=== PATIENT | male | born 1950 | race Caucasian/White ===

== ENCOUNTER 2022-05-19 20:59 | Inpatient (IN) | payer MEDICARE, OTHER ==
[~2022-05-19] VITALS: Ht 162.6 cm; Wt 72.6 kg
[2022-05-19] MEDS: levoFLOXacin 500 MG/D5W 500 MG in PREMIXED 1 EACH IV SCH (02:55)
[2022-05-19] MEDS ORDERED: ALBUTEROL SULFATE 2.5 MG/3 ML NEBU ONE (21:11)
[2022-05-19] MEDS ORDERED: IPRATROPIUM BROMIDE 0.5 MG/2.5 ML NEBU ONE (21:11)
[2022-05-19] MEDS ORDERED: IPRATROPIUM BROMIDE 0.5 MG/2.5 ML NEBU NEB ONE (21:15)
[2022-05-19] MEDS ORDERED: MAGNESIUM SULFATE 2 GM in IV DEXTROSE 5% 100 ML IV ONE (21:15)
[2022-05-19] MEDS ORDERED: ALBUTEROL SULFATE 2.5 MG/3 ML NEBU NEB ONE (21:15)
[2022-05-19] MEDS ORDERED: methylPREDNISolone SOD SUCC 125 MG/2 ML VIAL IV ONE (21:15)
[2022-05-19] MEDS ORDERED: methylPREDNISolone SOD SUCC 125 MG/2 ML VIAL ONE (21:26)
[2022-05-19] MEDS ORDERED: MAGNESIUM SULFATE/D5W 200 ML ONE (21:26)
[2022-05-19 21:44] LABS: HEMATOCRIT 44.3 % (36.7-47.1); MEAN CORPUSCULAR VOLUME 91.2 fL (73.0-96.2); PLATELET COUNT (AUTO) 216 K/uL (152-348)
[2022-05-19] MEDS ORDERED: CEFTRIAXONE 1 G in IV DEXTROSE 5% 50 ML IV ONE (22:00)
[2022-05-19] MEDS ORDERED: DOXYCYCLINE HYCLATE IV 100 MG in IV DEXTROSE 5% 100 ML IV ONE (22:00)
[2022-05-19 22:02] LABS: POTASSIUM 3.7 mmol/L (3.5-5.1)
[2022-05-19 22:07] LABS: BILIRUBIN,TOTAL 0.6 mg/dL (0.2-1.0); MAGNESIUM 2.2 mg/dL (1.8-2.4); PHOSPHOROUS 3.5 mg/dL (2.5-4.9); TOTAL PROTEIN, SERUM 7.3 g/dL (6.4-8.2)
[2022-05-19 22:12] LABS: EOSINOPHILS % (MANUAL) 28 % (0-8); LYMPHOCYTES % (MANUAL) 34 % (20-40); METAMYELOCYTES % 1 % (0-1); MONOCYTES % (MANUAL) 7 % (2-10); MYELOCYTES % 1 % (0-0); NEUTROPHILS % (MANUAL) 26 % (42-75)
[2022-05-19] MEDS ORDERED: OMEP20CA16 PO (22:15)
[2022-05-19] MEDS ORDERED: ATOR20TA PO (22:15)
[2022-05-19] MEDS ORDERED: OMEP20TA20 PO (22:15)
[2022-05-19] MEDS ORDERED: TAMS-3 PO (22:16)
[2022-05-19] MEDS ORDERED: LEVO5TAB13 PO (22:16)
[2022-05-19] MEDS ORDERED: CEFTRIAXONE /D5W 50ML IVPB **ER PYXIS IV ONE (22:20)
[2022-05-19 22:58] LABS: ABG BASE EXCESS 1.8 mmol/L; ABG HCO3 25.2 mmol/L; ABG PCO2 36.1 mmHg (35.0-45.0); ABG PH 7.462 (7.350-7.450); ABG PO2 59.6 mmHg (75.0-100.0); ABG SITE RIGHT RADIAL; ABG TOTAL HEMOGLOBIN 15.8 G/dL (13.5-18.0); COHb 0.9 % (0.5-1.5); MetHb 0.3 % (0.0-1.5); O2Hb 90.1 % (94.0-97.0); VENT MODE Nasal Cannula
[2022-05-19] MEDS ORDERED: DOXYCYCLINE HYCLATE 100 MG TABLET ONE (23:25)
[2022-05-19] MEDS ORDERED: ONDANSETRON 4 MG/2 ML VIAL IV PRN (23:30)
[2022-05-19] MEDS ORDERED: ALBUTEROL SULFATE 2.5 MG/ 0.5 ML NEBU NEB PRN (23:30)
[2022-05-19] MEDS ORDERED: HYDROCODONE/APAP 5-325MG TABLET PO PRN (23:30)
[2022-05-19] MEDS ORDERED: DOXYCYCLINE HYCLATE 100 MG TABLET PO ONE (23:30)
[2022-05-19] MEDS ORDERED: ACETAMINOPHEN 325 MG TABLET PO PRN (23:30)
[2022-05-19] MEDS ORDERED: MAGNESIUM HYDROXIDE 30 ML LIQUID UDC PO PRN (23:30)
[2022-05-20] MEDS ORDERED: levoFLOXacin 500 MG/D5W 100 ML ONE (02:46)
[2022-05-20] MEDS: levoFLOXacin 500 MG/D5W 500 MG in PREMIXED 1 EACH IV SCH ×2 (02:53→22:20)
[2022-05-20] MEDS: IPRATROPIUM BROMIDE 0.5 MG/2.5 ML NEBU NEB PRN ×3 (04:21→16:11)
[2022-05-20] MEDS ORDERED: IPRATROPIUM BROMIDE 0.5 MG/2.5 ML NEBU ONE (04:23)
[2022-05-20] MEDS ORDERED: ALBUTEROL SULFATE 2.5 MG/3 ML NEBU ONE (04:23)
[2022-05-20] MEDS ORDERED: methylPREDNISolone SOD SUCC 40 MG/ML VIAL ONE (06:02)
[2022-05-20] MEDS: methylPREDNISolone SOD SUCC 40 MG/ML VIAL IV SCH ×3 (06:05→21:14)
[2022-05-20] MEDS ORDERED: PANTOPRAZOLE SODIUM 40 MG TABLET.DR PO ONE (07:26)
[2022-05-20] MEDS: PANTOPRAZOLE SODIUM 40 MG TABLET.DR PO SCH (07:40)
[2022-05-20 07:48] LABS: THYROID STIMULATING HORMONE 0.706 mIU/mL (0.358-3.740)
[2022-05-20 07:51] LABS: BILIRUBIN,TOTAL 0.5 mg/dL (0.2-1.0); MAGNESIUM 2.6 mg/dL (1.8-2.4); PHOSPHOROUS 4.2 mg/dL (2.5-4.9); POTASSIUM 4.3 mmol/L (3.5-5.1); TOTAL PROTEIN, SERUM 7.3 g/dL (6.4-8.2)
[2022-05-20 07:55] LABS: HEMATOCRIT 41.9 % (36.7-47.1); MEAN CORPUSCULAR HEMOGLOBIN 30.1 uug (23.8-33.4); MEAN CORPUSCULAR VOLUME 91.2 fL (73.0-96.2); PLATELET COUNT (AUTO) 180 K/uL (152-348)
[2022-05-20] MEDS ORDERED: FLUTICASONE/VILANTEROL 1 EACH BLST.W.DEV INH SCH (09:00)
[2022-05-20] MEDS ORDERED: LEVOCETIRIZINE DIHYDROCHLORIDE 5 MG PO SCH (09:00)
[2022-05-20 10:04] VITALS: BP 146/70
[2022-05-20] MEDS: ENOXAPARIN SODIUM 40 MG/0.4 ML DISP.SYRIN SQ SCH (10:39)
[2022-05-20] MEDS: LORATADINE 10 MG TABLET PO SCH (10:40)
[2022-05-20] MEDS: ALBUTEROL SULFATE 2.5 MG/ 0.5 ML NEBU NEB PRN ×2 (10:54→16:11)
[2022-05-20 12:00] VITALS: BP 133/71
[2022-05-20 15:50] VITALS: BP 145/67
[2022-05-20] MEDS: ALBUTEROL SULFATE 2.5 MG/3 ML NEBU NEB SCH ×2 (16:12→20:17)
[2022-05-20] MEDS: IPRATROPIUM BROMIDE 0.5 MG/2.5 ML NEBU NEB SCH ×2 (16:12→20:16)
[2022-05-20] MEDS ORDERED: methylPREDNISolone SOD SUCC 125 MG/2 ML VIAL IV ONE (16:45)
[2022-05-20 20:00] VITALS: BP 123/66
[2022-05-20 20:15] LABS: LYMPHOCYTES % (MANUAL) 12 % (20-40); MONOCYTES % (MANUAL) 2 % (2-10); NEUTROPHILS % (MANUAL) 86 % (42-75)
[2022-05-20] MEDS: TAMSULOSIN HCL 0.4 MG CAP.SR.24H PO SCH (20:50)
[2022-05-20] MEDS: ATORVASTATIN 20 MG TABLET PO SCH (20:50)
[2022-05-20] MEDS: DOCUSATE SODIUM 100 MG CAPSULE PO SCH (20:50)
[2022-05-20] MEDS ORDERED: DOCUSATE SODIUM 250 MG CAPSULE PO SCH (21:00)
[2022-05-21] VITALS: BP 124/61
[2022-05-21] MEDS: IPRATROPIUM BROMIDE 0.5 MG/2.5 ML NEBU NEB SCH ×8 (00:05→23:36)
[2022-05-21] MEDS: ALBUTEROL SULFATE 2.5 MG/3 ML NEBU NEB SCH ×8 (00:06→23:36)
[2022-05-21 04:00] VITALS: BP 114/56
[2022-05-21] MEDS: methylPREDNISolone SOD SUCC 40 MG/ML VIAL IV SCH ×3 (05:20→21:41)
[2022-05-21] MEDS: PANTOPRAZOLE SODIUM 40 MG TABLET.DR PO SCH (06:51)
[2022-05-21 07:19] LABS: HEMATOCRIT 39.7 % (36.7-47.1); MEAN CORPUSCULAR HEMOGLOBIN 30.4 uug (23.8-33.4); MEAN CORPUSCULAR VOLUME 91.3 fL (73.0-96.2); PLATELET COUNT (AUTO) 189 K/uL (152-348)
[2022-05-21 07:27] LABS: CREATININE 1.2 mg/dL (0.6-1.3); MAGNESIUM 2.7 mg/dL (1.8-2.4); POTASSIUM 4.2 mmol/L (3.5-5.1)
[2022-05-21 07:32] LABS: THYROID STIMULATING HORMONE 0.638 mIU/mL (0.358-3.740)
[2022-05-21 08:53] LABS: *RHEUMATOID FACTOR SCREEN NEGATIVE (NEGATIVE)
[2022-05-21] MEDS: LORATADINE 10 MG TABLET PO SCH (09:41)
[2022-05-21] MEDS: GUAIFENESIN/DEXTROMETHORPHAN 5 ML UDC PO PRN (09:46)
[2022-05-21] MEDS: ENOXAPARIN SODIUM 40 MG/0.4 ML DISP.SYRIN SQ SCH (09:57)
[2022-05-21 20:30] VITALS: BP 132/69
[2022-05-21] MEDS: DOCUSATE SODIUM 100 MG CAPSULE PO SCH (20:32)
[2022-05-21] MEDS: ATORVASTATIN 20 MG TABLET PO SCH (20:32)
[2022-05-21] MEDS: TAMSULOSIN HCL 0.4 MG CAP.SR.24H PO SCH (20:32)
[2022-05-21] MEDS: levoFLOXacin 500 MG/D5W 500 MG in PREMIXED 1 EACH IV SCH (23:05)
[2022-05-22 00:08] VITALS: BP 131/59
[2022-05-22 04:20] VITALS: BP 125/69
[2022-05-22] MEDS: IPRATROPIUM BROMIDE 0.5 MG/2.5 ML NEBU NEB SCH ×5 (04:35→20:42)
[2022-05-22] MEDS: ALBUTEROL SULFATE 2.5 MG/3 ML NEBU NEB SCH ×5 (04:35→20:43)
[2022-05-22] MEDS: methylPREDNISolone SOD SUCC 40 MG/ML VIAL IV SCH ×3 (05:54→22:03)
[2022-05-22 06:21] LABS: HEMATOCRIT 38.6 % (36.7-47.1); MEAN CORPUSCULAR HEMOGLOBIN 30.3 uug (23.8-33.4); MEAN CORPUSCULAR VOLUME 91.1 fL (73.0-96.2); PLATELET COUNT (AUTO) 194 K/uL (152-348)
[2022-05-22] MEDS: PANTOPRAZOLE SODIUM 40 MG TABLET.DR PO SCH (06:31)
[2022-05-22 06:37] LABS: CREATININE 1.2 mg/dL (0.6-1.3); MAGNESIUM 2.6 mg/dL (1.8-2.4); PHOSPHOROUS 4.5 mg/dL (2.5-4.9); POTASSIUM 4.3 mmol/L (3.5-5.1)
[2022-05-22] MEDS: ENOXAPARIN SODIUM 40 MG/0.4 ML DISP.SYRIN SQ SCH ×2 (08:05→09:55)
[2022-05-22] MEDS: LORATADINE 10 MG TABLET PO SCH (08:46)
[2022-05-22 12:06] LABS: *IMMUNOGLOBULIN G, SERUM 810 mg/dL (603-1613); IMMUNOGLOBULIN M, SERUM 88 mg/dL (15-143)
[2022-05-22] MEDS: GUAIFENESIN/DEXTROMETHORPHAN 5 ML UDC PO PRN (14:14)
[2022-05-22 15:27] VITALS: BP 139/63
[2022-05-22 20:30] VITALS: BP 140/54
[2022-05-22] MEDS: ATORVASTATIN 20 MG TABLET PO SCH (20:47)
[2022-05-22] MEDS: TAMSULOSIN HCL 0.4 MG CAP.SR.24H PO SCH (20:47)
[2022-05-22] MEDS: DOCUSATE SODIUM 100 MG CAPSULE PO SCH (20:47)
[2022-05-22] MEDS: levoFLOXacin 500 MG/D5W 500 MG in PREMIXED 1 EACH IV SCH (22:32)
[2022-05-23 00:15] VITALS: BP 120/49
[2022-05-23] MEDS: IPRATROPIUM BROMIDE 0.5 MG/2.5 ML NEBU NEB SCH ×7 (00:27→23:43)
[2022-05-23] MEDS: ALBUTEROL SULFATE 2.5 MG/3 ML NEBU NEB SCH ×6 (00:27→19:39)
[2022-05-23 04:00] VITALS: BP 110/54
[2022-05-23] MEDS: methylPREDNISolone SOD SUCC 40 MG/ML VIAL IV SCH ×3 (05:45→21:01)
[2022-05-23] MEDS: PANTOPRAZOLE SODIUM 40 MG TABLET.DR PO SCH (06:11)
[2022-05-23 06:57] LABS: HEMATOCRIT 38.2 % (36.7-47.1); MEAN CORPUSCULAR HEMOGLOBIN 30.5 uug (23.8-33.4); MEAN CORPUSCULAR VOLUME 91.3 fL (73.0-96.2); PLATELET COUNT (AUTO) 164 K/uL (152-348)
[2022-05-23 07:18] LABS: MAGNESIUM 2.5 mg/dL (1.8-2.4); PHOSPHOROUS 4.2 mg/dL (2.5-4.9); POTASSIUM 4.4 mmol/L (3.5-5.1)
[2022-05-23] MEDS ORDERED: SWABABLE VALVE TRANSFER SET EA MC ONE (08:21)
[2022-05-23] MEDS ORDERED: IV NORMAL SALINE 250 ML IV ONE (08:21)
[2022-05-23] MEDS ORDERED: IOHEXOL 300MG/ML 100 ML INFUS..BTL ONE (08:21)
[2022-05-23] MEDS: LORATADINE 10 MG TABLET PO SCH (09:26)
[2022-05-23] MEDS: ENOXAPARIN SODIUM 40 MG/0.4 ML DISP.SYRIN SQ SCH (09:27)
[2022-05-23 11:17] VITALS: BP 146/78
[2022-05-23] MEDS: ALBUTEROL SULFATE 2.5 MG/ 0.5 ML NEBU NEB PRN ×2 (14:50→23:42)
[2022-05-23 16:00] VITALS: BP 131/57
[2022-05-23 20:00] VITALS: BP 132/61
[2022-05-23] MEDS: DOCUSATE SODIUM 100 MG CAPSULE PO SCH (20:10)
[2022-05-23] MEDS: TAMSULOSIN HCL 0.4 MG CAP.SR.24H PO SCH (20:10)
[2022-05-23] MEDS: ATORVASTATIN 20 MG TABLET PO SCH (20:10)
[2022-05-23] MEDS: levoFLOXacin 500 MG/D5W 500 MG in PREMIXED 1 EACH IV SCH (22:17)
[2022-05-23 23:22] LABS: *BILIRUBIN,URIN NEGATIVE (NEGATIVE); *CLARITY,URINE CLEAR (CLEAR); *COLOR,URINE YELLOW (YELLOW); *UROBILINOGEN,URINE 0.2 E.U./dl (NORMAL); LEUKOCYTE ESTERASE ,URINE NEGATIVE (NEGATIVE); NITRITE, URINE NEGATIVE (NEGATIVE); UGLUCOSE NEGATIVE (NEGATIVE)
[2022-05-23 23:23] LABS: *BLOOD, URINE NEGATIVE (NEGATIVE); *KETONES,URINE NEGATIVE (NEGATIVE)
[2022-05-24] VITALS: BP 135/56
[2022-05-24 02:06] LABS: HEPATITIS B SURFACE AG Negative (Negative)
[2022-05-24 04:00] VITALS: BP 151/65
[2022-05-24] MEDS: IPRATROPIUM BROMIDE 0.5 MG/2.5 ML NEBU NEB SCH ×6 (04:01→23:40)
[2022-05-24] MEDS: ALBUTEROL SULFATE 2.5 MG/3 ML NEBU NEB SCH ×6 (04:01→23:40)
[2022-05-24] MEDS: methylPREDNISolone SOD SUCC 40 MG/ML VIAL IV SCH ×3 (05:56→21:17)
[2022-05-24] MEDS: PANTOPRAZOLE SODIUM 40 MG TABLET.DR PO SCH (06:11)
[2022-05-24 07:01] LABS: MEAN CORPUSCULAR HEMOGLOBIN 30.6 uug (23.8-33.4); MEAN CORPUSCULAR VOLUME 90.9 fL (73.0-96.2); PLATELET COUNT (AUTO) 161 K/uL (152-348)
[2022-05-24 07:11] LABS: CREATININE 0.9 mg/dL (0.6-1.3); MAGNESIUM 2.6 mg/dL (1.8-2.4); PHOSPHOROUS 4.5 mg/dL (2.5-4.9); POTASSIUM 4.6 mmol/L (3.5-5.1)
[2022-05-24] MEDS: LORATADINE 10 MG TABLET PO SCH (08:30)
[2022-05-24] MEDS: ENOXAPARIN SODIUM 40 MG/0.4 ML DISP.SYRIN SQ SCH (08:33)
[2022-05-24 11:06] LABS: A/G RATIO 1.3 (0.7-1.7); ALBUMIN 3.4 g/dL (2.9-4.4); ALPHA-1-GLOBULIN 0.2 g/dL (0.0-0.4); ALPHA-2-GLOBULIN 0.7 g/dL (0.4-1.0); GAMMA GLOBULIN 0.7 g/dL (0.4-1.8); GLOBULIN, TOTAL 2.6 g/dL (2.2-3.9); M-SPIKE Not Observed g/dL (Not Observed)
[2022-05-24 11:53] VITALS: BP 126/66
[2022-05-24 16:00] VITALS: BP 138/63
[2022-05-24 17:06] LABS: *ANTI-SCLERODERMA-70 AB <0.2 AI (0.0-0.9); *SJOGREN'S ANTI-SS-A <0.2 AI (0.0-0.9); *SJOGREN'S ANTI-SS-B <0.2 AI (0.0-0.9); *SMITH ANTIBODIES <0.2 AI (0.0-0.9); ANTI-DNA(DS) AB, QN <1 IU/mL (0-9)
[2022-05-24 19:09] LABS: IRON, SERUM 169 ug/dL (50-175)
[2022-05-24 19:26] LABS: FERRITIN 227 ng/mL (26-388)
[2022-05-24 20:00] VITALS: BP 141/66
[2022-05-24] MEDS: DOCUSATE SODIUM 100 MG CAPSULE PO SCH (20:28)
[2022-05-24] MEDS: ATORVASTATIN 20 MG TABLET PO SCH (20:28)
[2022-05-24] MEDS: TAMSULOSIN HCL 0.4 MG CAP.SR.24H PO SCH (20:28)
[2022-05-24] MEDS: levoFLOXacin 500 MG/D5W 500 MG in PREMIXED 1 EACH IV SCH (22:04)
[2022-05-25] VITALS: BP 148/73
[2022-05-25] MEDS: ALBUTEROL SULFATE 2.5 MG/3 ML NEBU NEB SCH ×4 (03:44→14:53)
[2022-05-25] MEDS: IPRATROPIUM BROMIDE 0.5 MG/2.5 ML NEBU NEB SCH ×4 (03:44→14:53)
[2022-05-25] MEDS: methylPREDNISolone SOD SUCC 40 MG/ML VIAL IV SCH ×2 (06:17→14:40)
[2022-05-25] MEDS: PANTOPRAZOLE SODIUM 40 MG TABLET.DR PO SCH (06:17)
[2022-05-25 06:32] VITALS: BP 129/54
[2022-05-25 08:06] LABS: HEMATOCRIT 41.6 % (36.7-47.1); MEAN CORPUSCULAR VOLUME 91.3 fL (73.0-96.2); PLATELET COUNT (AUTO) 160 K/uL (152-348)
[2022-05-25 08:19] LABS: CREATININE 0.9 mg/dL (0.6-1.3); MAGNESIUM 2.5 mg/dL (1.8-2.4); PHOSPHOROUS 4.3 mg/dL (2.5-4.9); POTASSIUM 4.3 mmol/L (3.5-5.1)
[2022-05-25] MEDS: LORATADINE 10 MG TABLET PO SCH (08:27)
[2022-05-25] MEDS: ENOXAPARIN SODIUM 40 MG/0.4 ML DISP.SYRIN SQ SCH (08:30)
[2022-05-25 12:00] VITALS: BP 135/56
[2022-05-25] MEDS ORDERED: METH4TAB3 PO (13:19)
== END 2022-05-25 15:55 | disposition home or self-care (01) | DRG 189 ==
LOC: ER 20:59 → TRANSITION 23:20 → TELE3 05-20 08:30
PROVIDERS: ADMIT Registered Nurse; ATTEND Nurse Practitioner Acute Care
DX: J96.21 Acute and chronic respiratory failure with hypoxia (principal); J44.1 Chronic obstructive pulmonary disease with (acute) exacerbation; J44.0 Chronic obstructive pulmonary disease with (acute) lower respiratory infection; Z20.822 Contact with and (suspected) exposure to COVID-19; J20.9 Acute bronchitis, unspecified; E78.5 Hyperlipidemia, unspecified; D70.9 Neutropenia, unspecified; I10 Essential (primary) hypertension; K21.9 Gastro-esophageal reflux disease without esophagitis; Z87.891 Personal history of nicotine dependence; Z88.6 Allergy status to analgesic agent; N40.0 Benign prostatic hyperplasia without lower urinary tract symptoms; Z99.81 Dependence on supplemental oxygen
CPT/HCPCS: 36415; 36600; 70030-TC; 71045; 71250; 71260; 76700; 82378; 82747; 82784; 82785; 83550; 83735; 84100; 84153; 84155; 84165; 84443; 84484; 85014; 85025; 86038; 86140; 86334; 86430; 86706; 86803; 87340; 93005; 94640; 94664; A4663; G0378; J0696; J1650; J1956; J2920; J2930; J3475; J3490; J3590; Q9967